=== PATIENT | female | born 1955 | race African-American/Black ===

== ENCOUNTER 2019-09-12 11:10 | Outpatient (CLI) | payer MEDICARE, SELFPAY ==
[2019-09-12 12:02] LABS: Alanine Aminotransferase 17 U/L (4-35); Albumin Level 4.5 g/dL (3.5-5.1); Alkaline Phosphatase 54 U/L (38-126); Aspartate Amino Transferase 20 U/L (14-36); Bilirubin,Total 0.5 mg/dL (0.2-1.3); Blood Urea Nitrogen 9 mg/dL (7-17); Calcium 9.5 mg/dL (8.4-10.2); Carbon Dioxide 29 mmol/L (22-30); Chloride 104 mmol/L (98-107); Cholesterol 137 mg/dL (0-200); Estimated Glomerular Filt Rate > 60; Glucose 136 mg/dL (65-105); HDL Direct 41 mg/dL; Hemoglobin A1C 7.6 % (<5.7); Potassium 4.1 mmol/L (3.4-5.0); Sodium 141 mmol/L (137-145); Triglycerides 80 mg/dL (<150)
[2019-09-12 12:13] LABS: LDL Cholesterol Direct 73 mg/dL
[2019-09-12 12:26] LABS: MALB Creatinine Ratio 76.6 mg/g (0-30); Microalbumin Urine Random 65.9 mg/L (0-16.7)
== END 2019-09-12 11:11 | disposition home or self-care (01) ==
PROVIDERS: PCP Family Medicine; Visit Provider Family Medicine
DX: E11.9 Type 2 diabetes mellitus without complications (principal); E78.2 Mixed hyperlipidemia; I10 Essential (primary) hypertension
CPT/HCPCS: 36415; 80053; 80061; 82043; 83036; 84443

== ENCOUNTER 2023-07-03 09:12 | Outpatient (CLI) | payer MEDICARE, SELFPAY ==
--- NOTE | 2023-07-10 14:15 | WPDHOMESLEEP ---
Sleep Study - Home Unattended Date of Study: 07/03/23 Ordering Provider: Alan Ferrell APRN Interpreting Provider: Kary Mosley, DO Home Sleep Study Type: Watch PAT Height: 1.57 m Weight: 61.689 kg Body Mass Index: 24.8 Neck Circumference (inches): 14 [place]: 4 Reason for Sleep Study Re-evaluation for GLENNA after significant weight loss Sleep History The patient is a 67-year-old female with asthma, arthritis sleep paralysis, shift work disorder, hyperlipidemia, hypertension and previously diagnosed sleep apnea that had a sleep study ordered by the Pulmonary group to re-evaluate for sleep apnea. The patient frequently awakens from sleep short of breath. She occasionally awakens at night with heartburn, belching or cough. She frequently snores and it is occasionally loud enough that others complain. She occasionally has trouble sleeping when she has a cold. She frequently wakes up gasping for air throughout the night. She rarely has breathing problems at night observed by herself or others. She denies sweating excessively at night. She denies having heart palpitations or irregular heartbeats during the night. She occasionally falls asleep during the day but never while driving. She denies cataplexy. She denies having trouble at school or work due to sleepiness. She rarely feels unable to move while waking up or falling asleep. She occasionally experiences vivid dreamlike scenes upon awakening or falling asleep. She denies feeling afraid of going to sleep. She occasionally has nightmares. She rarely remembers her dreams. She denies having thoughts racing through her mind. She rarely feels sad, depressed or anxious. She denies having muscular tension. She denies noticing parts of her body jerk. She denies kicking during the night. She denies having crawling and aching feelings in her legs and denies having leg pain during the night. She denies grinding her teeth during sleep and denies awakening with morning jaw pain. She denies being bothered by pain during the day and denies being awakened by pain during the night. She rarely wakes up feeling stiff in the morning. She rarely wakes up with sore or achy muscles. She occasionally wakes up with pain in the neck, spine and other joints. She goes to bed between 11:00 p.m. to midnight on both weekdays and weekends. It takes her 15-30 minutes to fall asleep. She wakes up 1-2 times throughout the night in a can take her 10-15 minutes to fall back asleep. She wakes up at 7:00 a.m. on weekdays and between 7-8 a.m. on the weekends. She typically gets 5-6 hours of sleep per night. She will stay in bed for 15-30 minutes after waking up in the morning. She currently lives alone. She denies consuming any caffeinated beverages within 2 hours of bedtime. She denies engaging in physical exercise before bedtime. She will watch television before falling asleep. She denies taking naps in the afternoon or the evening. She consumes 2 caffeinated beverages per day. She denies tobacco, alcohol and recreational drug PMFSH Past Medical History Medical History Sleep disorder, shift work Sleep paralysis Family History Family History Father Diabetes mellitus Hypertension Family history of cardiovascular disease Social History Social History Smoking status: Never smoker Medications Home Medications Medication Instructions Recorded Confirmed Type aspirin 81 mg tablet,delayed 81 mg PO DAILY 05/01/19 05/15/23 History release (Adult Low Dose Aspirin) atorvastatin 20 mg tablet 20 mg PO DAILY 05/01/19 05/15/23 History losartan 100 mg tablet 100 mg PO DAILY 05/01/19 05/15/23 History ferrous fumarate 324 mg (106 mg PO 05/05/19 05/15/23 History iron) tablet ascorbic acid (vitamin C) 500 mg 250 mg PO
[2023-07-10 14:24] VITALS: BMI 24.8
== END 2023-07-04 11:28 | disposition home or self-care (01) ==
LOC: ANHCSM 09:15
PROVIDERS: PCP Family Medicine; Visit Provider Nurse Practitioner Family
DX: G47.30 Sleep apnea, unspecified (principal); R06.83 Snoring
CPT/HCPCS: 95800